=== PATIENT | female | born 1995 | race Caucasian/White ===

== ENCOUNTER 2016-11-22 14:10 | Emergency (ER) | payer BC ==
[2016-11-22 15:09] VITALS: BP 133/78
--- NOTE | 2016-11-22 15:50 | RAD ---
HISTORY: Sudden pain of lateral left knee COMPARISONS: None VIEWS: 4, Frontal, lateral, axial, and oblique views of the left knee FINDINGS: BONE DENSITY: Normal. BONES: There is no displaced fracture. JOINTS: There is no arthropathy. There is no suprapatellar joint effusion or lipohemarthrosis. ALIGNMENT: There is no dislocation. SOFT TISSUES: Unremarkable. OTHER FINDINGS: None. IMPRESSION: NO ACUTE OSSEOUS INJURY. IF SYMPTOMS PERSIST, RECOMMEND REPEAT IMAGING.
--- NOTE | 2016-11-22 16:04 | UC ---
Knee Pain HPI - HPI Summary HPI Summary: was getting up from seat on bus, slid knees sideways, felt a sudden "pop" and pain in left knee anterolaterally. Pain when she stood on it. Now limping. No prior knee injuries. - History of Current Complaint Chief Complaint: UCLowerExtremity Stated Complaint: LEFT KNEE INJURY Time Seen by Provider: 11/22/16 15:13 Hx Obtained From: Patient Hx Last Menstrual Period: 11/18/16 Onset/Duration: Sudden Onset, Lasting Hours - 3 Severity Initially: Moderate Severity Currently: Mild Character: Dull, Aching, Stiffness Aggravating Factor(s): Movement, Weight Bearing Alleviating Factor(s): Rest, Position Associated Signs And Symptoms: Negative: Swelling, Redness, Numbness, Tingling - Risk Factors Septic Arthritis Risk Factor: Negative Gout Risk Factor: Negative - Allergies/Home Medications Allergies/Adverse Reactions: Allergies Allergy/AdvReac Type Severity Reaction Status Date / Time Amoxicillin Allergy Rash Verified 11/22/16 15:09 Penicillins Allergy Rash Verified 11/22/16 15:09 PMH/Surg Hx/FS Hx/Imm Hx Respiratory History Of: Reports: Asthma - Surgical History Surgical History: Yes Surgery Procedure, Year, and Place: T&A - Family History Known Family History: Positive: None - Social History Occupation: Employed Full-time Lives: With Family Alcohol Use: Rare Substance Use Type: None Smoking Status (MU): Never Smoked Tobacco Review of Systems Constitutional: Negative Skin: Negative Eyes: Negative ENT: Negative Respiratory: Negative Cardiovascular: Negative Gastrointestinal: Negative Genitourinary: Negative Motor: Negative Neurovascular: Negative Musculoskeletal: Arthralgia, Decreased ROM, Myalgia Neurological: Negative Psychological: Negative All Other Systems Reviewed And Are Negative: Yes Physical Exam Triage Information Reviewed: Yes Appearance: Well-Appearing, No Pain Distress, Well-Nourished Vital Signs: Initial Vital Signs Temp 99.0 F 11/22/16 15:07 Pulse 94 11/22/16 15:07 Resp 14 11/22/16 15:07 BP 133/78 11/22/16 15:07 Pulse Ox 100 11/22/16 15:07 Vital Signs Reviewed: Yes Eye Exam: Normal Neck exam: Normal Respiratory Exam: Normal Cardiovascular Exam: Normal Musculoskeletal Exam: Other - mild tenderness left lateral knee. No patellar apprehension. Obesity makes eval of swelling difficult. MIld posterior tenderness Neurological Exam: Normal Psychological Exam: Normal Skin Exam: Normal Knee Pain Course/Dx - Differential Dx/Diagnosis Differential Diagnosis/HQI/PQRI: Dislocation, Fracture (Closed), Internal Derangement Of Knee, Sprain Provider Diagnoses: knee sprain Discharge - Discharge Plan Condition: Stable Disposition: HOME Prescriptions: Elastic Bandages & Supports [Knee Sleeve/Open Patella/] 1 mis XX DAILY PRN #1 mis PRN Reason: knee pain Patient Education Materials: Knee Sprain (ED) Forms: *School Release Referrals: Dave Celaya MD [Medical Doctor] - Non Staff,Doctor [Primary Care Provider] -
== END 2016-11-22 16:10 | disposition home or self-care (01) ==
LOC: UCCORT 14:10
DX: S83.422A Sprain of lateral collateral ligament of left knee, initial encounter (principal); W18.09XA Striking against other object with subsequent fall, initial encounter; J45.909 Unspecified asthma, uncomplicated; E66.9 Obesity, unspecified; Z88.0 Allergy status to penicillin; Z88.1 Allergy status to other antibiotic agents
CPT/HCPCS: 99211; G0463